=== PATIENT | male | born 1935 | race Caucasian/White ===

== ENCOUNTER → 2018-04-10 | Outpatient (CLI) | payer MEDICARE ==
[~2018-04-10] MED LIST: AEC81 PO; ATEN25TA PO; CLOP75TA14 PO; DOXY100T2 PO; ENAL5TAB PO; FURO-152 PO; ISOS30TA6 PO; METF-446 PO; MIRT30TA6; MULT-1258 PO; OMEG1CAP31 PO; POTA20TA82 PO; RANI150T7 PO; REGADENOSON 0.4 MG/5 ML PF SYG IVP SCH; SIMV40TA59 PO; SLOMG PO
== END | disposition home or self-care (01) ==
LOC: SHCH 08:12
PROVIDERS: ATTEND Internal Medicine Cardiovascular Disease
DX: R06.00 Dyspnea, unspecified (principal); I25.2 Old myocardial infarction
CPT/HCPCS: 78452; 93017; 96374; A9500 ×2; J2785

== ENCOUNTER → 2018-04-15 | Outpatient (CLI) | payer MEDICARE, OTHER ==
[~2018-04-15] MED LIST changes: -REGADENOSON 0.4 MG/5 ML PF SYG IVP SCH
== END | disposition home or self-care (01) ==
LOC: SHCH 11:31
PROVIDERS: ATTEND Internal Medicine Cardiovascular Disease
DX: E66.9 Obesity, unspecified (principal); R06.00 Dyspnea, unspecified
CPT/HCPCS: 93306

== ENCOUNTER → 2019-08-27 | Outpatient (CLI) | payer MEDICARE ==
[~2019-08-27] MED LIST changes: +REGADENOSON 0.4 MG/5 ML PF SYG IVP SCH
== END | disposition home or self-care (01) ==
LOC: SHCH 07:59
PROVIDERS: ATTEND Internal Medicine Cardiovascular Disease
DX: I42.9 Cardiomyopathy, unspecified (principal)
CPT/HCPCS: 78452; 93017; 96374; A9500 ×2; J2785 ×2

== ENCOUNTER → 2019-09-03 | Outpatient (CLI) | payer MEDICARE, OTHER ==
[~2019-09-03] MED LIST changes: -REGADENOSON 0.4 MG/5 ML PF SYG IVP SCH
== END | disposition home or self-care (01) ==
LOC: SHCH 15:28
PROVIDERS: ATTEND Internal Medicine Cardiovascular Disease
DX: R06.00 Dyspnea, unspecified (principal)
CPT/HCPCS: 93306; 93356

== ENCOUNTER → 2021-09-04 | Outpatient (CLI) | payer MEDICARE, OTHER ==
[~2021-09-04] MED LIST changes: -ENAL5TAB PO; +ENAL5TAB17 PO; -ISOS30TA6 PO; +ISOS30TA92 PO; +MIRT-93; -MIRT30TA6; +POTA-202 PO; -POTA20TA82 PO
== END | disposition home or self-care (01) ==
LOC: RAH 13:34
PROVIDERS: ATTEND Physical Medicine & Rehabilitation
DX: M47.816 Spondylosis without myelopathy or radiculopathy, lumbar region (principal); M25.78 Osteophyte, vertebrae; I70.8 Atherosclerosis of other arteries; Z91.040 Latex allergy status; Z88.0 Allergy status to penicillin; Z88.8 Allergy status to other drugs, medicaments and biological substances
CPT/HCPCS: 72114

== ENCOUNTER → 2021-10-02 | Outpatient (CLI) | payer MEDICARE, OTHER | END | disposition home or self-care (01) | LOC: RAH 13:00 | PROVIDERS: ATTEND Physical Medicine & Rehabilitation | DX: M47.26 Other spondylosis with radiculopathy, lumbar region (principal); M48.061 Spinal stenosis, lumbar region without neurogenic claudication; Z88.0 Allergy status to penicillin; Z91.040 Latex allergy status; Z88.8 Allergy status to other drugs, medicaments and biological substances | CPT/HCPCS: 72131 ==

== ENCOUNTER 2021-12-23 10:58 | Inpatient (IN) | payer MEDICARE ==
[2021-12-23] VITALS (10 sets, daily range): BP systolic 120–147; BP diastolic 54–82
[~2021-12-23] VITALS: Ht 170.2 cm; Wt 93.8 kg
[~2021-12-23 10:58] MED LIST changes: +AMIO200T68 PO; -ATEN25TA PO; +CARV3.12 PO; +DEXA6TAB7 PO; -DOXY100T2 PO; +DULA1.5P SQ; -ENAL5TAB17 PO; +FERS325 PO; +FISH1CAP27 PO; +LEVO100C4 PO; +LOSA25TA41 PO; +MELA3CAP2 PO; +PANT40TA54 PO; -RANI150T7 PO
[2021-12-23 11:45] LABS: ABG BASE EXCESS 1.2 mmol/L (-2.0-3.0); ABG HCO3 24.7 mmol/L (21.0-28.0); ABG OXYGEN SATURATION 92.6 % (95.0-99.0); ABG PCO2 36 mmHg (35-48)
[2021-12-23 11:50] LABS: BASOPHILS % (AUTO) 0.2 % (0.0-5.0); HEMATOCRIT 36.4 % (42-54); LYMPHOCYTES % (AUTO) 4.6 % (21.0-51.0); MEAN CORPUSCULAR HEMOGLOBIN 29.8 pg (27.0-33.0); MEAN CORPUSCULAR HGB CONC 32.4 g/dL (32.0-36.0); MEAN CORPUSCULAR VOLUME 91.9 fL (79-99); NEUTROPHILS % (AUTO) 89.1 % (40.0-77.0); PLATELET COUNT (AUTO) 283 K/uL (130-400); RED BLOOD CELL COUNT(AUTO) 3.96 MIL/uL (4.50-6.20); WHITE BLOOD COUNT (AUTO) 15.9 K/uL (4.8-10.8)
[2021-12-23] MEDS ORDERED: LEVOFLOXACIN 500 MG/D5W 100 ML 100 ML ONE (11:52)
[2021-12-23] MEDS ORDERED: IPRATROPIUM/ALBUTEROL SULFATE 3 ML SOLUTION IH ONE ×2 (12:00→12:01)
[2021-12-23] MEDS ORDERED: LEVOFLOXACIN 500 MG/D5W 100 ML 100 ML IV SCH (12:00)
[2021-12-23 12:11] LABS: CARBON DIOXIDE 24 mmol/L (21-32); CHLORIDE 99 mmol/L (101-111); CREATININE 1.7 mg/dL (0.5-1.5); GLOMERULAR FILTR. RATE CALC 41 mL/min (>60); GLUCOSE,RANDOM 346 mg/dL (70-105); POTASSIUM 4.6 mmol/L (3.5-5.1); SODIUM SERUM 132 mmol/L (136-145); UREA NITROGEN, BLOOD 25 mg/dL (7-18)
[2021-12-23 12:14] LABS: ALANINE AMINOTRANSFERASE 85 U/L (12-78); ALBUMIN 2.3 g/dL (3.5-5.0); ASPARTATE AMINOTRANSFERASE 47 U/L (10-37)
[2021-12-23] MEDS ORDERED: 0.9%NACL 1000ML 1,983 ML IV ONE (12:30)
[2021-12-23 12:36] LABS: APPEARANCE,URINE Clear (CLEAR); BILIRUBIN,URINE Negative (NEGATIVE); COLOR,URINE Yellow (YELLOW); GLUCOSE, URINE (UA) 500 mg/dL (NEGATIVE); KETONES,URINE Negative (NEGATIVE); LEUKOCYTE ESTERASE ,URINE Negative (NEGATIVE); NITRATE,URINE Negative (NEGATIVE); OCCULT BLOOD,URINE Negative (NEGATIVE); PROTEIN,URINE Negative (NEGATIVE); UROBILINOGEN,URINE 0.2 mg/dL (0.2-1.0)
[2021-12-23 12:41] LABS: CREATINE KINASE, TOTAL 40 U/L (21-232); TOTAL PROTEIN, SERUM 6.6 g/dL (6.0-8.3)
[2021-12-23] MEDS: ZYVOX 600 MG TAB PO SCH (13:00)
[2021-12-23 13:08] LABS: BACTERIA,URINE Rare /HPF (None Seen); RBC,URINE 0-1 /HPF (0-1); SQUAMOUS EPITHELIAL CELL,UR Rare /HPF (0-2); WBC,URINE 0-1 /HPF (0-1)
[2021-12-23 13:21] LABS: CRP QUANTITATIVE 115.5 mg/L (0.00-9.0)
[2021-12-23] MEDS: LEVOFLOXACIN 750 MG/D5W 150 ML 150 ML IV SCH (13:47)
[2021-12-23] MEDS ORDERED: ONDANSETRON 4MG TABLET PO PRN (14:00)
[2021-12-23] MEDS ORDERED: ENOXAPARIN SODIUM 30 MG/0.3 ML SQ ONE (14:00)
[2021-12-23] MEDS ORDERED: ACETAMINOPHEN 325 MG TAB PO PRN (14:00)
[2021-12-23] MEDS: CEFEPIME HCL 1 GM VIAL IVP SCH (14:20)
[2021-12-23] MEDS ORDERED: ATOR40TA71 PO (15:13)
[2021-12-23] MEDS ORDERED: FURO20TA4 PO (15:13)
[2021-12-23] MEDS ORDERED: MAXIO (15:13)
[2021-12-23] MEDS: INSULIN HUMULIN R 100 UNIT/ML 3ML SQ SCH ×3 (16:30→21:00)
[2021-12-23] MEDS ORDERED: NEO/POLYMYX B SULF/DEXAMETH 3.5 GM TUBE OU PRN (17:00)
[2021-12-23] MEDS ORDERED: FUROSEMIDE 20 MG TABLET PO SCH (17:00)
[2021-12-23] MEDS ORDERED: ATORVASTATIN 40 MG TABLET PO SCH (17:00)
[2021-12-23] MEDS ORDERED: KCL 20 MEQ ERTAB PO PRN (17:30)
[2021-12-23] MEDS ORDERED: GLUCAGON 1MG KIT 1 MG ML IM PRN (17:30)
[2021-12-23] MEDS ORDERED: LIDOCAINE HCL-MPF 1% 2ML VIAL IV PRN ×2 (17:30)
[2021-12-23] MEDS ORDERED: MAGNESIUM 2GM PREMIX 50ML 50 ML IV PRN (17:30)
[2021-12-23] MEDS ORDERED: DEXTROSE 50%-WATER 50 ML DISP.SYRIN IV PRN (17:30)
[2021-12-23] MEDS ORDERED: POTASSIUM CHLORIDE 10% ELIXIR 20 MEQ/15 ML UDCUP PO PRN (17:30)
[2021-12-23] MEDS ORDERED: POTASSIUM CHLORIDE 10MEQ/100ML 100 ML IV PRN ×2 (17:30)
[2021-12-23] MEDS: IPRATROPIUM/ALBUTEROL SULFATE 3 ML SOLUTION IH SCH ×2 (18:35→23:29)
[2021-12-23] MEDS: SOLU-MEDROL 125MG VIAL IVP SCH (19:31)
[2021-12-23] MEDS: FERROUS SULFATE 325 MG TABLET.DR PO SCH (20:52)
[2021-12-23] MEDS: AMIODARONE 200 MG TABLET PO SCH (20:52)
[2021-12-23] MEDS ORDERED: NON-FORMULARY MEDICATION 1 EACH (Ferrous Sulfate 325 MG) PO SCH (21:00)
[2021-12-23] MEDS: MELATONIN 3MG PO SCH (21:00)
[2021-12-23] MEDS ORDERED: MELATONIN 3 MG PO SCH (21:00)
[2021-12-24] VITALS (41 sets, daily range): BP systolic 95–151; BP diastolic 45–74
[2021-12-24] MEDS: ZYVOX 600 MG TAB PO SCH ×2 (03:23→13:47)
[2021-12-24] MEDS: SOLU-MEDROL 125MG VIAL IVP SCH ×3 (03:23→17:28)
[2021-12-24] MEDS: CEFEPIME HCL 1 GM VIAL IVP SCH ×2 (03:23→13:47)
[2021-12-24] MEDS: CARVEDILOL 3.125 MG TABLET PO SCH ×3 (03:41→21:09)
[2021-12-24 04:13] LABS: BASOPHILS % (AUTO) 0.2 % (0.0-5.0); EOSINOPHILS % (AUTO) 0.1 % (0.0-8.0); HEMATOCRIT 39.6 % (42-54); MEAN CORPUSCULAR HEMOGLOBIN 30.1 pg (27.0-33.0); MEAN CORPUSCULAR HGB CONC 32.3 g/dL (32.0-36.0); MEAN CORPUSCULAR VOLUME 93.2 fL (79-99); NEUTROPHILS % (AUTO) 77.7 % (40.0-77.0); PLATELET COUNT (AUTO) 331 K/uL (130-400); RED BLOOD CELL COUNT(AUTO) 4.25 MIL/uL (4.50-6.20); RED CELL DISTRIBUTION WIDTH 14.2 % (11.0-15.5)
[2021-12-24 04:31] LABS: HEMOGLOBIN A1C 6.9 % (4.0-6.0)
[2021-12-24 04:46] LABS: CREATININE 1.5 mg/dL (0.5-1.5); MAGNESIUM 2.1 mg/dL (1.80-2.40); POTASSIUM 4.3 mmol/L (3.5-5.1)
[2021-12-24] MEDS: IPRATROPIUM/ALBUTEROL SULFATE 3 ML SOLUTION IH SCH ×3 (06:59→18:41)
[2021-12-24] MEDS: LEVOTHYROXINE 100 MCG TABLET PO SCH (07:21)
[2021-12-24] MEDS: INSULIN HUMULIN R 100 UNIT/ML 3ML SQ SCH ×6 (07:30→21:00)
[2021-12-24] MEDS ORDERED: FUROSEMIDE 40MG VIAL IV ONE (08:30)
[2021-12-24] MEDS ORDERED: FUROSEMIDE 40MG VIAL ONE (08:35)
[2021-12-24] MEDS: FISH OIL 1000 MG/CAP PO SCH (08:39)
[2021-12-24] MEDS: AMIODARONE 200 MG TABLET PO SCH ×2 (08:39→21:09)
[2021-12-24] MEDS: PANTOPRAZOLE 40 MG TAB DR PO SCH (08:39)
[2021-12-24] MEDS: LOSARTAN 25 MG TABLET PO SCH (08:39)
[2021-12-24] MEDS: ENOXAPARIN SODIUM 30 MG/0.3 ML SQ SCH (08:40)
[2021-12-24 08:52] LABS: ABG BASE EXCESS -3.3 mmol/L (-2.0-3.0); ABG HCO3 25.3 mmol/L (21.0-28.0); ABG OXYGEN SATURATION 85.7 % (95.0-99.0); ABG PCO2 62 mmHg (35-48)
[2021-12-24] MEDS ORDERED: NON-FORMULARY MEDICATION 1 EACH (Levothyroxine Sodium (Levothyroxine) 100 MCG) PO SCH (09:00)
[2021-12-24] MEDS: DIAZEPAM 5 MG TABLET PO PRN (09:07)
[2021-12-24 10:18] LABS: INR 1.05 (0.85-1.15); PROTHROMBIN TIME 11.4 SEC (9.6-11.6)
[2021-12-24 10:19] LABS: PARTIAL THROMBOPLASTIN TIME 26.6 SEC (26.3-35.5)
[2021-12-24 11:22] LABS: ABG BASE EXCESS 1.4 mmol/L (-2.0-3.0); ABG HCO3 25.9 mmol/L (21.0-28.0); ABG OXYGEN SATURATION 96.1 % (95.0-99.0); ABG PCO2 41 mmHg (35-48)
[2021-12-24] MEDS: MELATONIN 3MG PO SCH (21:00)
[2021-12-24] MEDS: FUROSEMIDE 20MG VIAL IV SCH (21:08)
[2021-12-24] MEDS: FERROUS SULFATE 325 MG TABLET.DR PO SCH (21:09)
[2021-12-25] VITALS (24 sets, daily range): BP systolic 95–131; BP diastolic 40–68
[2021-12-25] MEDS: IPRATROPIUM/ALBUTEROL SULFATE 3 ML SOLUTION IH SCH ×5 (00:27→23:10)
[2021-12-25] MEDS: SOLU-MEDROL 125MG VIAL IVP SCH ×3 (02:03→17:07)
[2021-12-25] MEDS: CEFEPIME HCL 1 GM VIAL IVP SCH ×2 (02:03→13:21)
[2021-12-25] MEDS: ZYVOX 600 MG TAB PO SCH ×2 (02:03→13:21)
[2021-12-25 04:07] LABS: BASOPHILS % (AUTO) 0.1 % (0.0-5.0); HEMATOCRIT 35.1 % (42-54); LYMPHOCYTES % (AUTO) 3.1 % (21.0-51.0); MEAN CORPUSCULAR HEMOGLOBIN 29.7 pg (27.0-33.0); MONOCYTES % (AUTO) 3.4 % (3.0-13.0); PLATELET COUNT (AUTO) 288 K/uL (130-400); RED CELL DISTRIBUTION WIDTH 13.8 % (11.0-15.5); WHITE BLOOD COUNT (AUTO) 17.3 K/uL (4.8-10.8)
[2021-12-25 04:41] LABS: CREATININE 1.8 mg/dL (0.5-1.5); MAGNESIUM 2.2 mg/dL (1.80-2.40); PHOSPHORUS 6.4 mg/dL (2.5-4.9); POTASSIUM 4.4 mmol/L (3.5-5.1)
[2021-12-25 04:53] LABS: ABG BASE EXCESS 4.2 mmol/L (-2.0-3.0); ABG HCO3 27.7 mmol/L (21.0-28.0); ABG OXYGEN SATURATION 98.5 % (95.0-99.0); ABG PCO2 38 mmHg (35-48)
[2021-12-25 06:01] LABS: CRP QUANTITATIVE 228.3 mg/L (0.00-9.0)
[2021-12-25] MEDS: PANTOPRAZOLE 40 MG TAB DR PO SCH (06:25)
[2021-12-25] MEDS: LEVOTHYROXINE 100 MCG TABLET PO SCH (06:26)
[2021-12-25] MEDS: INSULIN HUMULIN R 100 UNIT/ML 3ML SQ SCH ×4 (06:33→20:47)
[2021-12-25] MEDS: FISH OIL 1000 MG/CAP PO SCH (08:23)
[2021-12-25] MEDS: FUROSEMIDE 20MG VIAL IV SCH ×2 (08:24→20:40)
[2021-12-25] MEDS: AMIODARONE 200 MG TABLET PO SCH ×2 (08:24→20:39)
[2021-12-25] MEDS: ENOXAPARIN SODIUM 30 MG/0.3 ML SQ SCH (08:25)
[2021-12-25] MEDS: LOSARTAN 25 MG TABLET PO SCH (09:00)
[2021-12-25] MEDS: CARVEDILOL 3.125 MG TABLET PO SCH ×2 (09:00→20:39)
[2021-12-25] MEDS: LEVOFLOXACIN 750 MG/D5W 150 ML 150 ML IV SCH (13:21)
[2021-12-25] MEDS: FERROUS SULFATE 325 MG TABLET.DR PO SCH (20:38)
[2021-12-25] MEDS: MELATONIN 3MG PO SCH (21:00)
[2021-12-26] VITALS (24 sets, daily range): BP systolic 99–135; BP diastolic 44–87
[2021-12-26] MEDS: ZYVOX 600 MG TAB PO SCH ×2 (00:55→12:20)
[2021-12-26] MEDS: CEFEPIME HCL 1 GM VIAL IVP SCH ×2 (00:55→16:39)
[2021-12-26] MEDS: SOLU-MEDROL 125MG VIAL IVP SCH ×3 (00:55→16:39)
[2021-12-26 04:21] LABS: BASOPHILS % (AUTO) 0.1 % (0.0-5.0); HEMATOCRIT 33.1 % (42-54); LYMPHOCYTES % (AUTO) 2.3 % (21.0-51.0); MEAN CORPUSCULAR HEMOGLOBIN 29.9 pg (27.0-33.0); MEAN CORPUSCULAR HGB CONC 33.5 g/dL (32.0-36.0); MEAN CORPUSCULAR VOLUME 89.2 fL (79-99); MONOCYTES % (AUTO) 3.6 % (3.0-13.0); NEUTROPHILS % (AUTO) 92.9 % (40.0-77.0); PLATELET COUNT (AUTO) 276 K/uL (130-400); RED BLOOD CELL COUNT(AUTO) 3.71 MIL/uL (4.50-6.20); RED CELL DISTRIBUTION WIDTH 13.9 % (11.0-15.5); WHITE BLOOD COUNT (AUTO) 23.6 K/uL (4.8-10.8)
[2021-12-26 04:52] LABS: ALBUMIN 1.8 g/dL (3.5-5.0); CREATININE 1.9 mg/dL (0.5-1.5); POTASSIUM 3.9 mmol/L (3.5-5.1); TOTAL PROTEIN, SERUM 6.1 g/dL (6.0-8.3)
[2021-12-26] MEDS: INSULIN HUMULIN R 100 UNIT/ML 3ML SQ SCH ×4 (06:28→20:45)
[2021-12-26] MEDS: IPRATROPIUM/ALBUTEROL SULFATE 3 ML SOLUTION IH SCH ×4 (06:30→23:10)
[2021-12-26] MEDS: PANTOPRAZOLE 40 MG TAB DR PO SCH (06:30)
[2021-12-26] MEDS: LEVOTHYROXINE 100 MCG TABLET PO SCH (06:30)
[2021-12-26 06:56] LABS: ABG BASE EXCESS 4.9 mmol/L (-2.0-3.0); ABG OXYGEN SATURATION 98.6 % (95.0-99.0); ABG PCO2 41 mmHg (35-48)
[2021-12-26] MEDS: FUROSEMIDE 20MG VIAL IV SCH ×2 (07:44→20:45)
[2021-12-26] MEDS: AMIODARONE 200 MG TABLET PO SCH ×2 (07:44→20:44)
[2021-12-26] MEDS: CARVEDILOL 3.125 MG TABLET PO SCH ×2 (07:44→20:44)
[2021-12-26] MEDS: ENOXAPARIN SODIUM 30 MG/0.3 ML SQ SCH (07:45)
[2021-12-26] MEDS: FISH OIL 1000 MG/CAP PO SCH (07:46)
[2021-12-26] MEDS: FERROUS SULFATE 325 MG TABLET.DR PO SCH (20:44)
[2021-12-26] MEDS: MELATONIN 3MG PO SCH (20:45)
[2021-12-27] VITALS (24 sets, daily range): BP systolic 105–138; BP diastolic 39–66
[2021-12-27] MEDS: SOLU-MEDROL 125MG VIAL IVP SCH ×3 (01:04→16:44)
[2021-12-27] MEDS: ZYVOX 600 MG TAB PO SCH ×2 (01:04→14:05)
[2021-12-27] MEDS: CEFEPIME HCL 1 GM VIAL IVP SCH ×2 (01:04→14:05)
[2021-12-27 03:32] LABS: BASOPHILS % (AUTO) 0.1 % (0.0-5.0); HEMATOCRIT 33.2 % (42-54); LYMPHOCYTES % (AUTO) 1.9 % (21.0-51.0); MEAN CORPUSCULAR HGB CONC 33.7 g/dL (32.0-36.0); MONOCYTES % (AUTO) 3.8 % (3.0-13.0); NEUTROPHILS % (AUTO) 92.8 % (40.0-77.0); PLATELET COUNT (AUTO) 241 K/uL (130-400); RED BLOOD CELL COUNT(AUTO) 3.73 MIL/uL (4.50-6.20); RED CELL DISTRIBUTION WIDTH 13.9 % (11.0-15.5); WHITE BLOOD COUNT (AUTO) 21.2 K/uL (4.8-10.8)
[2021-12-27 03:49] LABS: ALBUMIN 1.9 g/dL (3.5-5.0); CREATININE 1.9 mg/dL (0.5-1.5); POTASSIUM 4.1 mmol/L (3.5-5.1); TOTAL PROTEIN, SERUM 6.1 g/dL (6.0-8.3)
[2021-12-27] MEDS: PANTOPRAZOLE 40 MG TAB DR PO SCH (06:06)
[2021-12-27] MEDS: LEVOTHYROXINE 100 MCG TABLET PO SCH (06:06)
[2021-12-27] MEDS: IPRATROPIUM/ALBUTEROL SULFATE 3 ML SOLUTION IH SCH ×4 (06:24→23:35)
[2021-12-27] MEDS: INSULIN HUMULIN R 100 UNIT/ML 3ML SQ SCH ×4 (06:38→20:34)
[2021-12-27] MEDS: AMIODARONE 200 MG TABLET PO SCH ×2 (08:02→20:33)
[2021-12-27] MEDS: CARVEDILOL 3.125 MG TABLET PO SCH ×2 (08:02→20:32)
[2021-12-27] MEDS: FUROSEMIDE 20MG VIAL IV SCH ×2 (08:02→20:32)
[2021-12-27] MEDS: ENOXAPARIN SODIUM 30 MG/0.3 ML SQ SCH (08:03)
[2021-12-27] MEDS: FISH OIL 1000 MG/CAP PO SCH (08:06)
[2021-12-27] MEDS: LEVOFLOXACIN 750 MG/D5W 150 ML 150 ML IV SCH (14:05)
[2021-12-27] MEDS: MEROPENEM 1 GM VIAL IVP SCH (15:07)
[2021-12-27] MEDS: MIRTAZAPINE 15 MG TABLET PO SCH (20:33)
[2021-12-27] MEDS: MELATONIN 3MG PO SCH (20:33)
[2021-12-27] MEDS: FERROUS SULFATE 325 MG TABLET.DR PO SCH (20:33)
[2021-12-28] VITALS (21 sets, daily range): BP systolic 109–142; BP diastolic 47–72
[2021-12-28] MEDS: MEROPENEM 1 GM VIAL IVP SCH ×2 (01:34→14:00)
[2021-12-28] MEDS: SOLU-MEDROL 125MG VIAL IVP SCH ×3 (01:34→16:56)
[2021-12-28] MEDS: ZYVOX 600 MG TAB PO SCH ×2 (01:35→14:00)
[2021-12-28 03:44] LABS: BASOPHILS % (AUTO) 0.1 % (0.0-5.0); HEMATOCRIT 34.3 % (42-54); LYMPHOCYTES % (AUTO) 1.8 % (21.0-51.0); MEAN CORPUSCULAR HEMOGLOBIN 29.9 pg (27.0-33.0); MEAN CORPUSCULAR HGB CONC 33.5 g/dL (32.0-36.0); MEAN CORPUSCULAR VOLUME 89.1 fL (79-99); MONOCYTES % (AUTO) 3.5 % (3.0-13.0); NEUTROPHILS % (AUTO) 93.1 % (40.0-77.0); PLATELET COUNT (AUTO) 195 K/uL (130-400); RED BLOOD CELL COUNT(AUTO) 3.85 MIL/uL (4.50-6.20); RED CELL DISTRIBUTION WIDTH 13.8 % (11.0-15.5); WHITE BLOOD COUNT (AUTO) 22.9 K/uL (4.8-10.8)
[2021-12-28 03:58] LABS: ALBUMIN 1.7 g/dL (3.5-5.0); CREATININE 1.8 mg/dL (0.5-1.5); POTASSIUM 4.3 mmol/L (3.5-5.1)
[2021-12-28] MEDS: IPRATROPIUM/ALBUTEROL SULFATE 3 ML SOLUTION IH SCH ×4 (06:21→23:43)
[2021-12-28] MEDS: LEVOTHYROXINE 100 MCG TABLET PO SCH (06:38)
[2021-12-28] MEDS: INSULIN HUMULIN R 100 UNIT/ML 3ML SQ SCH ×4 (07:28→20:29)
[2021-12-28] MEDS: PANTOPRAZOLE 40 MG TAB DR PO SCH (08:36)
[2021-12-28] MEDS: AMIODARONE 200 MG TABLET PO SCH ×2 (08:36→20:06)
[2021-12-28] MEDS: FISH OIL 1000 MG/CAP PO SCH (08:36)
[2021-12-28] MEDS: FUROSEMIDE 20MG VIAL IV SCH ×2 (08:37→20:04)
[2021-12-28] MEDS: ENOXAPARIN SODIUM 30 MG/0.3 ML SQ SCH (08:37)
[2021-12-28] MEDS: CARVEDILOL 3.125 MG TABLET PO SCH ×2 (08:37→20:05)
[2021-12-28] MEDS: FERROUS SULFATE 325 MG TABLET.DR PO SCH (20:05)
[2021-12-28] MEDS: MIRTAZAPINE 15 MG TABLET PO SCH (20:09)
[2021-12-28] MEDS: MELATONIN 3MG PO SCH (20:29)
[2021-12-28] MEDS: DIAZEPAM 5 MG TABLET PO PRN (20:36)
[2021-12-29] VITALS (23 sets, daily range): BP systolic 107–146; BP diastolic 41–70
[2021-12-29] MEDS: SOLU-MEDROL 125MG VIAL IVP SCH ×3 (02:29→17:11)
[2021-12-29] MEDS: ZYVOX 600 MG TAB PO SCH ×2 (02:29→12:24)
[2021-12-29] MEDS: MEROPENEM 1 GM VIAL IVP SCH ×2 (02:36→14:23)
[2021-12-29] MEDS ORDERED: MULT-1367 PO (03:35)
[2021-12-29] MEDS ORDERED: BUSP10TA3 PO (03:35)
[2021-12-29] MEDS ORDERED: MIRT-93 PO (03:35)
[2021-12-29] MEDS ORDERED: MAGN64TA9 PO (03:35)
[2021-12-29] MEDS ORDERED: CLOP75TA14 PO (03:35)
[2021-12-29] MEDS ORDERED: POTA-202 PO (03:35)
[2021-12-29] MEDS ORDERED: VIT1TAB.13 PO (03:35)
[2021-12-29] MEDS ORDERED: OMEG1CAP31 PO (03:35)
[2021-12-29] MEDS ORDERED: LACT10SO9 PO (03:35)
[2021-12-29] MEDS ORDERED: ASPI-1005 PO (03:35)
[2021-12-29] MEDS ORDERED: ISOS10TA8 PO (03:35)
[2021-12-29 04:26] LABS: BASOPHILS % (AUTO) 0.1 % (0.0-5.0); HEMATOCRIT 34.5 % (42-54); MEAN CORPUSCULAR HEMOGLOBIN 29.7 pg (27.0-33.0); MEAN CORPUSCULAR VOLUME 89.8 fL (79-99); MONOCYTES % (AUTO) 3.3 % (3.0-13.0); NEUTROPHILS % (AUTO) 92.6 % (40.0-77.0); PLATELET COUNT (AUTO) 177 K/uL (130-400); RED BLOOD CELL COUNT(AUTO) 3.84 MIL/uL (4.50-6.20); RED CELL DISTRIBUTION WIDTH 13.6 % (11.0-15.5); WHITE BLOOD COUNT (AUTO) 21.9 K/uL (4.8-10.8)
[2021-12-29 04:44] LABS: ALBUMIN 1.8 g/dL (3.5-5.0); CREATININE 1.9 mg/dL (0.5-1.5); POTASSIUM 4.6 mmol/L (3.5-5.1)
[2021-12-29] MEDS: PANTOPRAZOLE 40 MG TAB DR PO SCH (06:14)
[2021-12-29] MEDS: LEVOTHYROXINE 100 MCG TABLET PO SCH (06:14)
[2021-12-29] MEDS: INSULIN HUMULIN R 100 UNIT/ML 3ML SQ SCH ×4 (06:20→20:27)
[2021-12-29] MEDS: IPRATROPIUM/ALBUTEROL SULFATE 3 ML SOLUTION IH SCH ×4 (06:43→23:14)
[2021-12-29] MEDS: FUROSEMIDE 40 MG TABLET PO SCH ×2 (09:53→17:11)
[2021-12-29] MEDS: FISH OIL 1000 MG/CAP PO SCH (09:53)
[2021-12-29] MEDS: AMIODARONE 200 MG TABLET PO SCH ×2 (09:53→20:25)
[2021-12-29] MEDS: ENOXAPARIN SODIUM 30 MG/0.3 ML SQ SCH (09:54)
[2021-12-29] MEDS: CARVEDILOL 3.125 MG TABLET PO SCH ×2 (09:54→20:25)
[2021-12-29] MEDS: FERROUS SULFATE 325 MG TABLET.DR PO SCH (20:25)
[2021-12-29] MEDS: MIRTAZAPINE 15 MG TABLET PO SCH (20:25)
[2021-12-29] MEDS: MELATONIN 3MG PO SCH (21:00)
[2021-12-30] VITALS (24 sets, daily range): BP systolic 101–157; BP diastolic 37–97
[2021-12-30] MEDS: ZYVOX 600 MG TAB PO SCH ×2 (00:04→13:04)
[2021-12-30] MEDS: SOLU-MEDROL 125MG VIAL IVP SCH ×3 (00:04→16:46)
[2021-12-30] MEDS: MEROPENEM 1 GM VIAL IVP SCH ×2 (01:21→13:04)
[2021-12-30 05:09] LABS: BASOPHILS % (AUTO) 0.1 % (0.0-5.0); HEMATOCRIT 36.7 % (42-54); LYMPHOCYTES % (AUTO) 1.9 % (21.0-51.0); MEAN CORPUSCULAR HEMOGLOBIN 29.3 pg (27.0-33.0); MEAN CORPUSCULAR VOLUME 88.9 fL (79-99); MONOCYTES % (AUTO) 2.3 % (3.0-13.0); PLATELET COUNT (AUTO) 149 K/uL (130-400); RED BLOOD CELL COUNT(AUTO) 4.13 MIL/uL (4.50-6.20); RED CELL DISTRIBUTION WIDTH 13.7 % (11.0-15.5); WHITE BLOOD COUNT (AUTO) 21.7 K/uL (4.8-10.8)
[2021-12-30 05:23] LABS: ALBUMIN 1.8 g/dL (3.5-5.0); CREATININE 1.9 mg/dL (0.5-1.5); POTASSIUM 4.7 mmol/L (3.5-5.1)
[2021-12-30] MEDS: LEVOTHYROXINE 100 MCG TABLET PO SCH (05:41)
[2021-12-30] MEDS: INSULIN HUMULIN R 100 UNIT/ML 3ML SQ SCH ×4 (06:02→20:22)
[2021-12-30] MEDS: IPRATROPIUM/ALBUTEROL SULFATE 3 ML SOLUTION IH SCH ×4 (06:44→21:01)
[2021-12-30] MEDS: CARVEDILOL 3.125 MG TABLET PO SCH ×2 (08:51→20:19)
[2021-12-30] MEDS: FISH OIL 1000 MG/CAP PO SCH (08:51)
[2021-12-30] MEDS: ENOXAPARIN SODIUM 30 MG/0.3 ML SQ SCH (08:51)
[2021-12-30] MEDS: AMIODARONE 200 MG TABLET PO SCH ×2 (08:51→20:19)
[2021-12-30] MEDS: PANTOPRAZOLE 40 MG TAB DR PO SCH (08:53)
[2021-12-30] MEDS ORDERED: FUROSEMIDE 20 MG TABLET PO SCH (09:00)
[2021-12-30] MEDS: FERROUS SULFATE 325 MG TABLET.DR PO SCH (20:19)
[2021-12-30] MEDS: MIRTAZAPINE 15 MG TABLET PO SCH (20:19)
[2021-12-30] MEDS: MELATONIN 3MG PO SCH (20:43)
[2021-12-31] VITALS (24 sets, daily range): BP systolic 102–141; BP diastolic 43–99
[2021-12-31] MEDS: ZYVOX 600 MG TAB PO SCH ×2 (00:33→13:01)
[2021-12-31] MEDS: SOLU-MEDROL 125MG VIAL IVP SCH ×4 (00:33→20:45)
[2021-12-31] MEDS: MEROPENEM 1 GM VIAL IVP SCH ×2 (01:36→13:01)
[2021-12-31 06:00] LABS: BASOPHILS % (AUTO) 0.1 % (0.0-5.0); HEMATOCRIT 36.4 % (42-54); LYMPHOCYTES % (AUTO) 2.1 % (21.0-51.0); MEAN CORPUSCULAR HEMOGLOBIN 29.6 pg (27.0-33.0); MEAN CORPUSCULAR VOLUME 89.7 fL (79-99); MONOCYTES % (AUTO) 2.3 % (3.0-13.0); PLATELET COUNT (AUTO) 155 K/uL (130-400); RED BLOOD CELL COUNT(AUTO) 4.06 MIL/uL (4.50-6.20); RED CELL DISTRIBUTION WIDTH 13.8 % (11.0-15.5); WHITE BLOOD COUNT (AUTO) 20.8 K/uL (4.8-10.8)
[2021-12-31] MEDS: LEVOTHYROXINE 100 MCG TABLET PO SCH (06:02)
[2021-12-31] MEDS: INSULIN HUMULIN R 100 UNIT/ML 3ML SQ SCH ×4 (06:05→20:47)
[2021-12-31 06:16] LABS: ALBUMIN 1.8 g/dL (3.5-5.0); CREATININE 1.8 mg/dL (0.5-1.5); POTASSIUM 4.8 mmol/L (3.5-5.1); TOTAL PROTEIN, SERUM 5.8 g/dL (6.0-8.3)
[2021-12-31] MEDS: IPRATROPIUM/ALBUTEROL SULFATE 3 ML SOLUTION IH SCH ×4 (06:46→23:37)
[2021-12-31] MEDS: ENOXAPARIN SODIUM 30 MG/0.3 ML SQ SCH (08:11)
[2021-12-31] MEDS: AMIODARONE 200 MG TABLET PO SCH ×2 (08:11→20:44)
[2021-12-31] MEDS: FISH OIL 1000 MG/CAP PO SCH (08:12)
[2021-12-31] MEDS: PANTOPRAZOLE 40 MG TAB DR PO SCH (08:12)
[2021-12-31] MEDS: CARVEDILOL 3.125 MG TABLET PO SCH ×2 (08:12→20:44)
[2021-12-31] MEDS: MIRTAZAPINE 15 MG TABLET PO SCH (20:44)
[2021-12-31] MEDS: FERROUS SULFATE 325 MG TABLET.DR PO SCH (20:44)
[2021-12-31] MEDS: MELATONIN 3MG PO SCH (21:00)
[2022-01-01] VITALS (23 sets, daily range): BP systolic 104–159; BP diastolic 51–98
[2022-01-01] MEDS: ZYVOX 600 MG TAB PO SCH ×2 (00:53→13:08)
[2022-01-01] MEDS: MEROPENEM 1 GM VIAL IVP SCH ×2 (01:34→13:38)
[2022-01-01 03:53] LABS: BASOPHILS % (AUTO) 0.1 % (0.0-5.0); LYMPHOCYTES % (AUTO) 1.8 % (21.0-51.0); MEAN CORPUSCULAR HEMOGLOBIN 30.6 pg (27.0-33.0); MEAN CORPUSCULAR HGB CONC 34.7 g/dL (32.0-36.0); MONOCYTES % (AUTO) 1.9 % (3.0-13.0); NEUTROPHILS % (AUTO) 94.4 % (40.0-77.0); PLATELET COUNT (AUTO) 158 K/uL (130-400); RED BLOOD CELL COUNT(AUTO) 4.09 MIL/uL (4.50-6.20); RED CELL DISTRIBUTION WIDTH 13.5 % (11.0-15.5); WHITE BLOOD COUNT (AUTO) 23.9 K/uL (4.8-10.8)
[2022-01-01 04:13] LABS: ALBUMIN 1.8 g/dL (3.5-5.0); CREATININE 1.8 mg/dL (0.5-1.5); PHOSPHORUS 4.9 mg/dL (2.5-4.9); POTASSIUM 4.9 mmol/L (3.5-5.1); TOTAL PROTEIN, SERUM 5.7 g/dL (6.0-8.3)
[2022-01-01] MEDS: LEVOTHYROXINE 100 MCG TABLET PO SCH (05:21)
[2022-01-01] MEDS: INSULIN HUMULIN R 100 UNIT/ML 3ML SQ SCH ×4 (05:35→21:33)
[2022-01-01] MEDS: IPRATROPIUM/ALBUTEROL SULFATE 3 ML SOLUTION IH SCH ×4 (06:42→23:26)
[2022-01-01] MEDS: PANTOPRAZOLE 40 MG TAB DR PO SCH (08:55)
[2022-01-01] MEDS: SOLU-MEDROL 125MG VIAL IVP SCH ×2 (08:56→21:30)
[2022-01-01] MEDS: ENOXAPARIN SODIUM 30 MG/0.3 ML SQ SCH (08:56)
[2022-01-01] MEDS: FISH OIL 1000 MG/CAP PO SCH (08:56)
[2022-01-01] MEDS: CARVEDILOL 3.125 MG TABLET PO SCH ×2 (08:56→21:31)
[2022-01-01] MEDS: AMIODARONE 200 MG TABLET PO SCH ×2 (08:56→21:30)
[2022-01-01] MEDS: CLOTRIMAZOLE 10 MG TROCHE MM SCH ×2 (11:55→18:18)
[2022-01-01] MEDS: MELATONIN 3MG PO SCH (21:00)
[2022-01-01] MEDS: MIRTAZAPINE 15 MG TABLET PO SCH (21:30)
[2022-01-01] MEDS: FERROUS SULFATE 325 MG TABLET.DR PO SCH (21:30)
[2022-01-02] VITALS (23 sets, daily range): BP systolic 111–145; BP diastolic 41–91
[2022-01-02] MEDS: CLOTRIMAZOLE 10 MG TROCHE MM SCH ×4 (00:56→17:20)
[2022-01-02] MEDS: ZYVOX 600 MG TAB PO SCH ×2 (00:59→14:27)
[2022-01-02] MEDS: MEROPENEM 1 GM VIAL IVP SCH ×2 (01:45→14:27)
[2022-01-02] MEDS: PANTOPRAZOLE 40 MG TAB DR PO SCH (06:02)
[2022-01-02 06:03] LABS: BASOPHILS % (AUTO) 0.1 % (0.0-5.0); HEMATOCRIT 36.1 % (42-54); LYMPHOCYTES % (AUTO) 1.8 % (21.0-51.0); MEAN CORPUSCULAR HGB CONC 33.8 g/dL (32.0-36.0); MEAN CORPUSCULAR VOLUME 88.9 fL (79-99); MONOCYTES % (AUTO) 1.3 % (3.0-13.0); NEUTROPHILS % (AUTO) 94.8 % (40.0-77.0); PLATELET COUNT (AUTO) 146 K/uL (130-400); RED BLOOD CELL COUNT(AUTO) 4.06 MIL/uL (4.50-6.20); RED CELL DISTRIBUTION WIDTH 13.5 % (11.0-15.5); WHITE BLOOD COUNT (AUTO) 21.5 K/uL (4.8-10.8)
[2022-01-02] MEDS: LEVOTHYROXINE 100 MCG TABLET PO SCH (06:03)
[2022-01-02 06:17] LABS: ALBUMIN 1.8 g/dL (3.5-5.0); CREATININE 1.7 mg/dL (0.5-1.5); TOTAL PROTEIN, SERUM 5.6 g/dL (6.0-8.3)
[2022-01-02] MEDS: IPRATROPIUM/ALBUTEROL SULFATE 3 ML SOLUTION IH SCH ×3 (06:33→19:00)
[2022-01-02] MEDS: INSULIN HUMULIN R 100 UNIT/ML 3ML SQ SCH ×4 (07:02→21:31)
[2022-01-02] MEDS: CARVEDILOL 3.125 MG TABLET PO SCH ×2 (08:38→21:28)
[2022-01-02] MEDS: FISH OIL 1000 MG/CAP PO SCH (08:38)
[2022-01-02] MEDS: AMIODARONE 200 MG TABLET PO SCH ×2 (08:38→21:29)
[2022-01-02] MEDS: SOLU-MEDROL 125MG VIAL IVP SCH ×2 (08:38→21:29)
[2022-01-02] MEDS: ENOXAPARIN SODIUM 30 MG/0.3 ML SQ SCH (08:39)
[2022-01-02 08:58] LABS: ABG BASE EXCESS 4.7 mmol/L (-2.0-3.0); ABG HCO3 28.8 mmol/L (21.0-28.0); ABG OXYGEN SATURATION 94.4 % (95.0-99.0); ABG PCO2 41 mmHg (35-48)
[2022-01-02] MEDS: FUROSEMIDE 40MG VIAL IV SCH (11:29)
[2022-01-02] MEDS: MELATONIN 3MG PO SCH (21:00)
[2022-01-02] MEDS: FERROUS SULFATE 325 MG TABLET.DR PO SCH (21:28)
[2022-01-02] MEDS: MIRTAZAPINE 15 MG TABLET PO SCH (21:29)
[2022-01-03] VITALS (22 sets, daily range): BP systolic 97–141; BP diastolic 36–74
[2022-01-03] MEDS: IPRATROPIUM/ALBUTEROL SULFATE 3 ML SOLUTION IH SCH ×5 (00:06→23:13)
[2022-01-03] MEDS: CLOTRIMAZOLE 10 MG TROCHE MM SCH ×4 (01:00→17:41)
[2022-01-03] MEDS: ZYVOX 600 MG TAB PO SCH ×2 (01:00→12:55)
[2022-01-03] MEDS: FUROSEMIDE 40MG VIAL IV SCH ×2 (01:00→09:49)
[2022-01-03] MEDS: MEROPENEM 1 GM VIAL IVP SCH ×2 (01:00→14:30)
[2022-01-03 03:57] LABS: ABG BASE EXCESS 6.2 mmol/L (-2.0-3.0); ABG OXYGEN SATURATION 95.1 % (95.0-99.0); ABG PCO2 45 mmHg (35-48)
[2022-01-03 04:06] LABS: MEAN CORPUSCULAR HEMOGLOBIN 29.7 pg (27.0-33.0); MEAN CORPUSCULAR HGB CONC 33.8 g/dL (32.0-36.0); MEAN CORPUSCULAR VOLUME 87.9 fL (79-99); RED BLOOD CELL COUNT(AUTO) 4.21 MIL/uL (4.50-6.20); RED CELL DISTRIBUTION WIDTH 13.2 % (11.0-15.5); WHITE BLOOD COUNT (AUTO) 25.7 K/uL (4.8-10.8)
[2022-01-03 04:26] LABS: CREATININE 1.8 mg/dL (0.5-1.5); CRP QUANTITATIVE 5.3 mg/L (0.00-9.0); MAGNESIUM 2.6 mg/dL (1.80-2.40); PHOSPHORUS 4.3 mg/dL (2.5-4.9); POTASSIUM 4.5 mmol/L (3.5-5.1)
[2022-01-03] MEDS ORDERED: NITROGLYCERIN 0.4 MG SL TAB SL ONE (06:09)
[2022-01-03] MEDS ORDERED: MORPHINE 2 MG SYG IVP ONE (06:30)
[2022-01-03] MEDS ORDERED: NITROGLYCERIN 0.4 MG SL TAB SL PRN (06:30)
[2022-01-03] MEDS: PANTOPRAZOLE 40 MG TAB DR PO SCH (06:34)
[2022-01-03] MEDS: LEVOTHYROXINE 100 MCG TABLET PO SCH (06:34)
[2022-01-03] MEDS: INSULIN HUMULIN R 100 UNIT/ML 3ML SQ SCH ×4 (06:35→21:00)
[2022-01-03] MEDS: SOLU-MEDROL 125MG VIAL IVP SCH ×2 (09:49→22:04)
[2022-01-03] MEDS: FISH OIL 1000 MG/CAP PO SCH (09:49)
[2022-01-03] MEDS: ENOXAPARIN SODIUM 30 MG/0.3 ML SQ SCH (09:49)
[2022-01-03] MEDS: CARVEDILOL 3.125 MG TABLET PO SCH ×2 (09:51→22:05)
[2022-01-03] MEDS: AMIODARONE 200 MG TABLET PO SCH ×2 (09:51→22:05)
[2022-01-03] MEDS: MELATONIN 3MG PO SCH (20:52)
[2022-01-03] MEDS: FERROUS SULFATE 325 MG TABLET.DR PO SCH (22:05)
[2022-01-03] MEDS: MIRTAZAPINE 15 MG TABLET PO SCH (22:05)
[2022-01-04] VITALS (23 sets, daily range): BP systolic 95–129; BP diastolic 42–68
[2022-01-04] MEDS: CLOTRIMAZOLE 10 MG TROCHE MM SCH ×4 (01:24→23:48)
[2022-01-04] MEDS: ZYVOX 600 MG TAB PO SCH ×2 (01:27→12:21)
[2022-01-04] MEDS: MEROPENEM 1 GM VIAL IVP SCH ×2 (03:06→14:13)
[2022-01-04 04:12] LABS: HEMATOCRIT 36.1 % (42-54); MEAN CORPUSCULAR HEMOGLOBIN 29.3 pg (27.0-33.0); MEAN CORPUSCULAR HGB CONC 33.8 g/dL (32.0-36.0); MEAN CORPUSCULAR VOLUME 86.8 fL (79-99); RED BLOOD CELL COUNT(AUTO) 4.16 MIL/uL (4.50-6.20); RED CELL DISTRIBUTION WIDTH 13.3 % (11.0-15.5); WHITE BLOOD COUNT (AUTO) 20.9 K/uL (4.8-10.8)
[2022-01-04 05:02] LABS: CREATININE 1.8 mg/dL (0.5-1.5); POTASSIUM 4.2 mmol/L (3.5-5.1)
[2022-01-04] MEDS: PANTOPRAZOLE 40 MG TAB DR PO SCH (06:39)
[2022-01-04] MEDS: INSULIN HUMULIN R 100 UNIT/ML 3ML SQ SCH ×4 (06:39→22:28)
[2022-01-04] MEDS: LEVOTHYROXINE 100 MCG TABLET PO SCH (06:39)
[2022-01-04] MEDS: IPRATROPIUM/ALBUTEROL SULFATE 3 ML SOLUTION IH SCH ×4 (06:51→23:01)
[2022-01-04] MEDS: SOLU-MEDROL 125MG VIAL IVP SCH ×2 (08:36→21:50)
[2022-01-04] MEDS: FISH OIL 1000 MG/CAP PO SCH (08:36)
[2022-01-04] MEDS: AMIODARONE 200 MG TABLET PO SCH ×2 (08:36→21:49)
[2022-01-04] MEDS: FUROSEMIDE 40MG VIAL IV SCH (08:36)
[2022-01-04] MEDS: ENOXAPARIN SODIUM 30 MG/0.3 ML SQ SCH (08:36)
[2022-01-04] MEDS: CARVEDILOL 3.125 MG TABLET PO SCH ×2 (08:37→21:49)
[2022-01-04] MEDS: MELATONIN 3MG PO SCH (21:00)
[2022-01-04] MEDS: FERROUS SULFATE 325 MG TABLET.DR PO SCH (21:49)
[2022-01-04] MEDS: MIRTAZAPINE 15 MG TABLET PO SCH (21:50)
[2022-01-05] VITALS (19 sets, daily range): BP systolic 95–139; BP diastolic 45–72
[2022-01-05] MEDS: ZYVOX 600 MG TAB PO SCH ×2 (00:47→13:06)
[2022-01-05] MEDS: MEROPENEM 1 GM VIAL IVP SCH ×2 (02:37→14:18)
[2022-01-05 06:09] LABS: HEMATOCRIT 37.3 % (42-54); MEAN CORPUSCULAR HEMOGLOBIN 29.6 pg (27.0-33.0); MEAN CORPUSCULAR HGB CONC 33.5 g/dL (32.0-36.0); MEAN CORPUSCULAR VOLUME 88.2 fL (79-99); RED BLOOD CELL COUNT(AUTO) 4.23 MIL/uL (4.50-6.20); RED CELL DISTRIBUTION WIDTH 13.4 % (11.0-15.5); WHITE BLOOD COUNT (AUTO) 21.3 K/uL (4.8-10.8)
[2022-01-05 06:20] LABS: CREATININE 1.7 mg/dL (0.5-1.5); MAGNESIUM 2.4 mg/dL (1.80-2.40); PHOSPHORUS 4.7 mg/dL (2.5-4.9); POTASSIUM 4.3 mmol/L (3.5-5.1)
[2022-01-05] MEDS: CLOTRIMAZOLE 10 MG TROCHE MM SCH ×2 (06:26→11:13)
[2022-01-05] MEDS: LEVOTHYROXINE 100 MCG TABLET PO SCH (06:27)
[2022-01-05] MEDS: INSULIN HUMULIN R 100 UNIT/ML 3ML SQ SCH ×3 (06:28→15:59)
[2022-01-05] MEDS: IPRATROPIUM/ALBUTEROL SULFATE 3 ML SOLUTION IH SCH ×3 (06:40→18:44)
[2022-01-05] MEDS: PANTOPRAZOLE 40 MG TAB DR PO SCH (08:30)
[2022-01-05] MEDS: CARVEDILOL 3.125 MG TABLET PO SCH (08:30)
[2022-01-05] MEDS: FISH OIL 1000 MG/CAP PO SCH (08:31)
[2022-01-05] MEDS: AMIODARONE 200 MG TABLET PO SCH (08:31)
[2022-01-05] MEDS: SOLU-MEDROL 125MG VIAL IVP SCH (08:31)
[2022-01-05] MEDS: FUROSEMIDE 40MG VIAL IV SCH (08:31)
[2022-01-05] MEDS: ENOXAPARIN SODIUM 30 MG/0.3 ML SQ SCH (08:33)
== END 2022-01-05 19:35 | DRG 871 ==
LOC: EDH 10:58 → EDHIP 12:49 → 3AH 14:46 → 2CH 20:01
PROVIDERS: ADMIT Internal Medicine Infectious Disease; ATTEND Internal Medicine Infectious Disease
PROC: 5A09357 Assistance with Respiratory Ventilation, Less than 24 Consecutive Hours, Continuous Positive Airway Pressure (ICD-10-PCS; principal; 2021-12-24)
PROC: 5A09357 Assistance with Respiratory Ventilation, Less than 24 Consecutive Hours, Continuous Positive Airway Pressure (ICD-10-PCS; 2021-12-25)
PROC: 5A0955A Assistance with Respiratory Ventilation, Greater than 96 Consecutive Hours, High Flow/Velocity Cannula (ICD-10-PCS; 2021-12-25)
PROC: 5A09357 Assistance with Respiratory Ventilation, Less than 24 Consecutive Hours, Continuous Positive Airway Pressure (ICD-10-PCS; 2021-12-26)
PROC: 5A09357 Assistance with Respiratory Ventilation, Less than 24 Consecutive Hours, Continuous Positive Airway Pressure (ICD-10-PCS; 2021-12-27)
PROC: 5A09357 Assistance with Respiratory Ventilation, Less than 24 Consecutive Hours, Continuous Positive Airway Pressure (ICD-10-PCS; 2021-12-28)
PROC: 5A09357 Assistance with Respiratory Ventilation, Less than 24 Consecutive Hours, Continuous Positive Airway Pressure (ICD-10-PCS; 2021-12-29)
PROC: 5A09357 Assistance with Respiratory Ventilation, Less than 24 Consecutive Hours, Continuous Positive Airway Pressure (ICD-10-PCS; 2021-12-30)
PROC: 5A09357 Assistance with Respiratory Ventilation, Less than 24 Consecutive Hours, Continuous Positive Airway Pressure (ICD-10-PCS; 2021-12-31)
PROC: 5A09357 Assistance with Respiratory Ventilation, Less than 24 Consecutive Hours, Continuous Positive Airway Pressure (ICD-10-PCS; 2022-01-01)
PROC: 5A09357 Assistance with Respiratory Ventilation, Less than 24 Consecutive Hours, Continuous Positive Airway Pressure (ICD-10-PCS; 2022-01-02)
PROC: 5A09357 Assistance with Respiratory Ventilation, Less than 24 Consecutive Hours, Continuous Positive Airway Pressure (ICD-10-PCS; 2022-01-03)
PROC: 5A09357 Assistance with Respiratory Ventilation, Less than 24 Consecutive Hours, Continuous Positive Airway Pressure (ICD-10-PCS; 2022-01-04)
DX: A41.9 Sepsis, unspecified organism (principal); I50.43 Acute on chronic combined systolic (congestive) and diastolic (congestive) heart failure; U07.1 COVID-19; J12.82 Pneumonia due to coronavirus disease 2019; J80 Acute respiratory distress syndrome; I13.0 Hypertensive heart and chronic kidney disease with heart failure and stage 1 through stage 4 chronic kidney disease, or unspecified chronic kidney disease; J44.1 Chronic obstructive pulmonary disease with (acute) exacerbation; J44.0 Chronic obstructive pulmonary disease with (acute) lower respiratory infection; N17.9 Acute kidney failure, unspecified; E87.1 Hypo-osmolality and hyponatremia; E78.5 Hyperlipidemia, unspecified; E66.01 Morbid (severe) obesity due to excess calories; E11.22 Type 2 diabetes mellitus with diabetic chronic kidney disease; N18.30 Chronic kidney disease, stage 3 unspecified; Z68.32 Body mass index [BMI] 32.0-32.9, adult; Z88.0 Allergy status to penicillin; E11.65 Type 2 diabetes mellitus with hyperglycemia; F32.A Depression, unspecified; E03.9 Hypothyroidism, unspecified; I25.10 Atherosclerotic heart disease of native coronary artery without angina pectoris; Z95.1 Presence of aortocoronary bypass graft; Z83.3 Family history of diabetes mellitus; G47.33 Obstructive sleep apnea (adult) (pediatric); Z95.810 Presence of automatic (implantable) cardiac defibrillator; Z96.653 Presence of artificial knee joint, bilateral; I25.5 Ischemic cardiomyopathy; Z87.891 Personal history of nicotine dependence; D64.9 Anemia, unspecified; Z66 Do not resuscitate; Z74.01 Bed confinement status; M19.90 Unspecified osteoarthritis, unspecified site; K21.9 Gastro-esophageal reflux disease without esophagitis
CPT/HCPCS: 36415; 36600; 71045; 71250; 80048; 80053; 81001; 82435; 82550; 82803; 82947; 82948; 83036; 83605; 83735; 83880; 84100; 84132; 84145; 84295; 84484; 85018; 85025; 85027; 85378; 85610; 85730; 86140; 87040; 87635; 93005; 93970; 94640; 94660; 94664; 97039; 99291; C1751; C1894; C9803; G0378; J0692; J1650; J1815; J1940; J1956; J2185; J2930; J7030